=== PATIENT | male | born 1995 | race Hispanic/Latino ===

== ENCOUNTER 2018-06-23 18:32 | Emergency (ER) | payer OTHER ==
[2018-06-23] MEDS ORDERED: IBUPROFEN 600 MG TABLET ONE (20:00)
== END 2018-06-23 20:20 | disposition home or self-care (01) ==
LOC: EDH 18:32
DX: S60.221A Contusion of right hand, initial encounter (principal); Y04.2XXA Assault by strike against or bumped into by another person, initial encounter; Y93.89 Activity, other specified; Y92.148 Other place in prison as the place of occurrence of the external cause; Y99.8 Other external cause status
CPT/HCPCS: 73130